=== PATIENT | female | born 1990 | race Two or more races ===

== ENCOUNTER 2024-07-31 06:06 | Emergency (ER) | payer BC, SELFPAY ==
[2024-07-31 06:06] VITALS: BMI 29.2
[2024-07-31 06:12] VITALS: BP 124/82; PULSE 86; RESP 18; TEMP 36.6; O2SAT 98
--- NOTE | 2024-07-31 06:16 | PD.EDADULT ---
ED General RME/HPI General Chief complaint: Dizziness Stated complaint: dizziness, L ear ache, headache Time Seen by Provider: 07/31/24 06:16 Arrival date/time: 07/31/24 06:06 CC: Less ear pressure/pain with mild dizziness HPI ongoing for the past 24 hours the patient has had a cold like symptoms for a week prior to this. Patient denies fever chills nausea vomiting headache shortness of breath difficulty breathing. No OTC medicines taken. Related Data Previous Rx's ?Medication ?Instructions ?Recorded cetirizine 10 mg tablet 10 mg PO QDAY PRN allergy symptoms 07/31/24 #10 tabs Allergies Allergy/AdvReac Type Severity Reaction Status Date / Time No Known Allergies Allergy Verified 07/31/24 06:09 Review of Systems Review of Systems Narrative Review of Systems: GEN: No fever, no chills, no weight loss EYES: No discharge, no visual changes, no pain HEENT: No ear pain, no congestion, no sore throat PULM: No shortness of breath, no cough, no congestion CV: No chest pain, no dyspnea on exertion, no palpitations GI: No nausea, no vomiting, no diarrhea, no pain, no constipation : No frequency, no urgency, no dysuria MUSC/SKEL: No joint pain, no back pain SKIN: No rash PSYCH: No hallucinations, no depression HEME/LYMPH: No easy bleeding or bruising tendencies NEURO: No weakness, no headache Past Medical History Social History SMOKING STATUS: Current every day smoker ED Exam Narrative Physical exam: [General: Not in any acute distress Head normocephalic HEENT: Eyes pupils are PERRLA EOMs are intact, no nystagmus., Ears: EACs are completely clear, no debris or wax. TMs are both visible, positive cone of light no surrounding erythema edema no retraction or bulging. All other subsystems of HEENT are within acceptable limits Neck is supple nontender Chest equal chest rise nontender to palpation Respiratory: Clear to auscultation no wheezes crackles or rubs CV: Rate rhythm is regular no murmurs rubs or clicks Abdomen is distended secondary to body habitus soft nontender no masses positive bowel sounds all 4 quadrants Back: No CVA tenderness no spinous process tenderness from cervical spine thoracic and lumbar spine Skin: Intact no petechiae rash induration ulceration or crepitus Extremities: Moving all extremity against resistance cap refill less than 2 seconds neurosensory intact Neuro: Awake alert oriented x3 Glascow coma 15 no focal deficits] Course Quality Measures none Vital Signs Vital signs: Vital Signs Temperature 97.9 F 07/31/24 06:12 Pulse Rate 86 07/31/24 06:12 Respiratory Rate 18 07/31/24 06:12 Blood Pressure 124/82 07/31/24 06:12 Pulse Oximetry (%) 98 07/31/24 06:12 Oxygen Delivery Method Room Air 07/31/24 06:12 [facility] Patient data External records reviewed:: [facility] previous records Clinical information provided by:: patient Social determinants that could affect healthcare access:: none Patient has the following chronic illnesses:: None How is presenting disease/condition affected by chronic disease/condition?: uneffected by Evaluation data The following diagnostics were reviewed and interpreted by me:: other (specify) (None) Lab and/or radiology exams considered but not ordered:: None Interpretation Summary: Suspect a pressure in the middle ear, as the patient has no nystagmus this is not a central vertiginous vertigo. Medications Medications considered but not ordered:: None Medication administrations:: None Consultations Consultation(s) initiated? (list below): No Diagnosis Differential Diagnosis ED Complaint MDM: Benign positional vertigo M?ni?re's, eustachian tube occlusion Most likely diagnosis given after review of the tests above:: Ear pressure secondary to a station clued occlusion Admission Indicated Admission indicated?: not indicated Explain why admission is indicated or not indicated:: Stable for outpatient follow-up Admission Request Was there a request for admission?: No Disposition Plan Disposition Plan: Discharge Discharge Attestation Discharge Attestation: The patient and all family members were given an opportunity to ask questions and understood the discharge instructions. Discharge instructions specifically effects, indications for sooner follow up or return to the emergency department, and the expected course of current diagnosis. Patient condition: Stable Medical Decision Making Differential Diagnosis Differential Diagnosis: Benign positional vertigo M?ni?re's, eustachian tube occlusion Discharge Plan Plan Patient Disposition: HOME (Self Care) Patient condition on transfer: Stable Prescriptions/Referrals Prescriptions/Med Rec: New cetirizine 10 mg tablet 10 mg PO QDAY PRN (Reason: allergy symptoms) Qty: 10 0RF Problem List Clinical Impression: Ear pain, Dizziness Patient/Caregiver Discharge Instructions Education Materials: ED Earache Without Infection (Adult) Additional Instructions: Take the medication as prescribed follow-up with your primary care doctor Print Language: Swiss Stand Alone Forms: Leeanne Award Info., Work/School Release, Patient Portal Info Letter PA/SENIOR SYSTEMS DEVELOPER Supervising Physician PA/SENIOR SYSTEMS DEVELOPER Supervising Physician: Heladio Gibson ENP
== END 2024-07-31 06:25 | disposition home or self-care (01) ==
LOC: SERX 06:23
PROVIDERS: Emergency Provider Emergency Medicine
DX: R42 Dizziness and giddiness (principal); H92.02 Otalgia, left ear
CPT/HCPCS: 99281